=== PATIENT | female | born 1995 | race African-American/Black ===

== ENCOUNTER 2023-11-11 13:06 | Emergency (ER) | payer SELFPAY ==
[2023-11-11 13:41] VITALS: BP 112/75; PULSE 95; RESP 16; TEMP 101.5; BMI 35.5
[2023-11-11 13:41] LABS: HCG,QUALITATIVE URINE Negative
[2023-11-11] MEDS: SODIUM CHLORIDE 1,000 ML IV STA (14:48)
[2023-11-11 15:03] LABS: HEMATOCRIT 38.1 % (32.4-45.2); HEMOGLOBIN 11.8 G/dL (10.7-15.3); MCH 26.9 pg (25.7-33.7); MCHC 30.9 g/dl (32.0-36.0); MEAN CELL VOLUME 87.1 fl (80-96); PLATELET COUNT 432.3 10^3/uL (134-434); RBC 4.38 10^6/uL (3.60-5.2); RDW 14.5 % (11.6-15.6); WHITE BLOOD COUNT 10.9 10^3/uL (4.0-10.8)
[2023-11-11] MEDS: ACETAMINOPHEN 325 MG TABLET (FP) PO ONE (16:32)
[2023-11-11 16:43] LABS: ALBUMIN 4.1 g/dl (3.4-5.0); BILIRUBIN,TOTAL 0.3 mg/dl (0.2-1); CALCIUM 9.4 mg/dl (8.5-10.1); CREATININE 0.8 mg/dl (0.6-1.3); POTASSIUM 4.7 mmol/L (3.5-5.1); TOT PROT 7.3 g/dl (6.4-8.2)
== END 2023-11-11 18:12 | disposition home or self-care (01) ==
LOC: FER 13:06
DX: N12 Tubulo-interstitial nephritis, not specified as acute or chronic (principal); R10.9 Unspecified abdominal pain; R50.9 Fever, unspecified; R11.0 Nausea; R19.7 Diarrhea, unspecified; R35.0 Frequency of micturition; R30.0 Dysuria; Z20.822 Contact with and (suspected) exposure to COVID-19
CPT/HCPCS: 0241U-QW; 36415; 74176-TC; 80053; 81003; 81015; 84703; 85027; 87086; 87186; 99284-25